=== PATIENT | female | born 1990 | race Two or more races ===

== ENCOUNTER 2019-03-08 16:55 | Emergency (ER) | payer OTHER ==
[~2019-03-08] VITALS: Ht 175.3 cm; Wt 65.0 kg
[2019-03-08] MEDS ORDERED: ACETAMINOPHEN 325MG TABLET PO PRN (17:45)
[2019-03-08 17:51] LABS: CLARITY URINE CLOUDY (CLEAR); COLOR URINE YELLOW (YELLOW); KETONES URINE TRACE (NEGATIVE); LEUKOCYTE ESTERASE URINE 1+ (NEGATIVE); NITRITE URINE NEGATIVE (NEGATIVE); OCCULT BLOOD URINE NEGATIVE (NEGATIVE); PH URINE 5.5 (4.5-8.0); PROTEIN URINE NEGATIVE (NEGATIVE); SPECIFIC GRAVITY URINE 1.027 (1.005-1.030)
[2019-03-08 17:53] LABS: BASOPHILS % 0.3 % (0.0-2.0); EOSINOPHILS % 2.9 % (0.0-5.0); HEMATOCRIT. 41.1 % (36.0-48.0); HEMOGLOBIN. 13.8 g/dL (12.0-16.0); LYMPHOCYTES % 25.2 % (20.0-50.0); MEAN CORPUSCULAR HEMOGLOBIN 29.4 pg (28.0-32.0); MEAN CORPUSCULAR VOLUME 87.3 fL (81.0-99.0); MEAN PLATELET VOLUME 9.3 fl (7.4-10.4); MONOCYTES % 8.5 % (2.0-8.0); NEUTROPHILS % 63.1 % (40.0-76.0); PLATELET 284 x1000/uL (130-400); RED BLOOD CELL COUNT 4.71 mill/uL (4.2-5.4); RED CELL DISTRIBUTION WIDTH 13.1 % (11.6-14.6)
[2019-03-08 17:57] LABS: CHLORIDE 107 mEq/L (98-107)
[2019-03-08 20:40] VITALS: BP 131/83
== END 2019-03-08 20:41 | disposition home or self-care (01) ==
LOC: ER 16:55
DX: N83.291 Other ovarian cyst, right side (principal); N39.0 Urinary tract infection, site not specified
CPT/HCPCS: 36415; 76830; 76856; 80053; 81003; 81025; 83690; 85025; 99284; Z7610